=== PATIENT | female | born 1950 | race Two or more races ===

== ENCOUNTER 2022-06-16 11:28 | Emergency (ER) | payer MEDICARE, BC ==
[~2022-06-16] VITALS: Ht 152.4 cm; Wt 81.6 kg
--- NOTE | 2022-06-16 11:35 | NUR ---
RECEIVED PT 71 YRS FEMALE CAME FROM HOME C/O NECK AND UPPER BACK PAIN FOR ONE WEEK RESPIRATION SPONT AND EASY
--- NOTE | 2022-06-16 12:25 | NUR ---
Seen by DR. BECKFORD
[2022-06-16] MEDS ORDERED: ACETAMINOPHEN ES 500 MG TABLET PO ONE (12:30)
[2022-06-16] MEDS ORDERED: ACETAMINOPHEN ES 500 MG TABLET ONE (12:37)
--- NOTE | 2022-06-16 12:58 | NUR ---
CXRAY DONE AT BED SIDE
--- NOTE | 2022-06-16 13:20 | NUR ---
RESTING AND COMFORTABLE AT THIS TIME
--- NOTE | 2022-06-16 13:38 | NUR ---
Patient discharged to home in stable condition. Written and verbal after care instructions given. Patient verbalizes understanding of instruction.
[2022-06-16 13:39] VITALS: BP 123/68
== END 2022-06-16 13:40 | disposition home or self-care (01) ==
LOC: ER 11:38
DX: S29.012A Strain of muscle and tendon of back wall of thorax, initial encounter (principal); I10 Essential (primary) hypertension; E11.9 Type 2 diabetes mellitus without complications; K21.9 Gastro-esophageal reflux disease without esophagitis; E78.00 Pure hypercholesterolemia, unspecified; Z88.0 Allergy status to penicillin; X58.XXXA Exposure to other specified factors, initial encounter; Y93.89 Activity, other specified; Y92.89 Other specified places as the place of occurrence of the external cause; Y99.8 Other external cause status
CPT/HCPCS: 71045-TC